=== PATIENT | male | born 2000 | race Caucasian/White ===

== ENCOUNTER 2023-02-05 16:24 | Emergency (ER) | payer OTHER | END 2023-02-05 18:05 | disposition home or self-care (01) | LOC: KA.ED 16:24 | DX: S93.402A Sprain of unspecified ligament of left ankle, initial encounter (principal); Z02.6 Encounter for examination for insurance purposes; Z88.0 Allergy status to penicillin; V87.8XXA Person injured in other specified noncollision transport accidents involving motor vehicle (traffic), initial encounter; Y92.410 Unspecified street and highway as the place of occurrence of the external cause | CPT/HCPCS: 73610-LT; 99283 ==